=== PATIENT | female | born 1980 | race African-American/Black ===

== ENCOUNTER 2020-10-15 17:41 | Emergency (ER) | payer OTHER ==
[~2020-10-15] VITALS: Ht 172.7 cm; Wt 110.7 kg
[2020-10-15] MEDS ORDERED: MEDROLDOSEPACK PO (18:36)
[2020-10-15 18:51] VITALS: BP 124/89
== END 2020-10-15 18:40 | disposition home or self-care (01) ==
LOC: ER 17:41
DX: U07.1 COVID-19 (principal); I10 Essential (primary) hypertension; Z90.711 Acquired absence of uterus with remaining cervical stump; Z88.6 Allergy status to analgesic agent; Z88.5 Allergy status to narcotic agent; Z88.0 Allergy status to penicillin